=== PATIENT | male | born 1970 | race Caucasian/White ===

== ENCOUNTER → 2019-10-27 12:08 | Outpatient (CLI) | payer OTHER, SELFPAY ==
--- NOTE | 2019-10-27 | DI.RAD.S_ITS ---
PROCEDURE: FL ARTHROGRAM SHOULDER LT INDICATIONS: Left shoulder pain TECHNIQUE: The indications, alternatives, benefits, risks, and complications of the procedure were explained to the patient. Written informed consent was obtained and placed in the chart. The shoulder was examined fluoroscopically and a site for needle placement chosen for entry into the glenohumeral joint from an anterior approach. The skin was prepped and draped in a sterile fashion, and 1% lidocaine infiltrated from skin down to joint capsule. A spinal needle was inserted into the glenohumeral joint, and a small amount of iodinated contrast media injected to confirm intra-articular placement of the needle tip. This was followed by approximately 12 mL dilute solution of a gadolinium containing MR contrast agent. The needle was removed and a dressing was applied. The patient was given postprocedural instructions and sent to the MR suite for MR imaging. FINDINGS: A single fluoroscopic spot image demonstrates intra-articular location of injected iodinated contrast. IMPRESSION: Successful fluoroscopically guided administration of dilute Gadolinium solution into the shoulder joint for MR arthrogram. Dictated by: Marty Wei M.D. on 10/27/2019 at 15:18 Approved by: Marty Wei M.D. on 10/27/2019 at 15:18
--- NOTE | 2019-10-27 | DI.MRI.S_ITS ---
PROCEDURE: MR SHOULDER LT W CON INDICATIONS: Left shoulder pain TECHNIQUE: After the administration of 12 mL of dilute intra-articular Gadolinium contrast, oblique coronal T1 and T2 spin echo with fat saturation, oblique sagittal T1 spin echo with and without fat saturation, oblique sagittal T2 fast spin echo with fat saturation, axial T1 spin echo with fat saturation through the shoulder. COMPARISON: None. FINDINGS: Image quality: Excellent. Rotator cuff: Tendinosis and low-grade articular and bursal surface partial-thickness tear involving distal supraspinatus is seen at its insertion the humeral head extending to the musculotendinous junction. Distal infraspinatus tendinosis is also noted. Distal subscapularis tendon is intact. No rotator cuff muscle atrophy on sagittal images. Bones and bursae: No bone marrow contusions or fractures. Mild to moderate acromioclavicular joint osteoarthritic changes are seen with downward osteophyte formation compressing on musculotendinous junction of supraspinatus.. Capsule and soft tissues: There is suggestion of focal superior anterior labral tear at one to 2:00 position. The glenohumeral ligaments appear intact. The long head of the biceps tendon demonstrates normal location and morphology. The rotator interval appears normal, without fibrosis. The coracohumeral ligament is of normal thickness. No intra-articular bodies. IMPRESSION: 1. Suggestion of focal superior anterior labral tear at one to 2:00 position. 2. Tendinosis and low-grade articular and bursal surface partial-thickness tear involving distal supraspinatus extending to musculotendinous junction. Distal infraspinatus tendinosis. 3. Mild to moderate acromioclavicular joint osteoarthritis. Dictated by: Blade Garcia M.D. on 10/27/2019 at 16:58 Approved by: Blade Garcia M.D. on 10/27/2019 at 17:03
== END ==
PROVIDERS: Referring Provider Physician Assistant; Visit Provider Physician Assistant
DX: M25.512 Pain in left shoulder (principal); M19.012 Primary osteoarthritis, left shoulder; M75.112 Incomplete rotator cuff tear or rupture of left shoulder, not specified as traumatic
CPT/HCPCS: 23350; 73040; 73222; 77002

== ENCOUNTER 2023-02-26 07:10 | Emergency (ER) | payer OTHER, SELFPAY ==
[2023-02-26 07:24] VITALS: BP 150/86; PULSE 90; RESP 18; TEMP 36.8; O2SAT 99; BMI 26.7
--- NOTE | 2023-02-26 07:34 | ED_ITS ---
HPI - Back Pain/Injury General Chief Complaint: Back Pain/Injury Stated Complaint: lower back pain Time Seen by Provider: 02/26/23 07:23 History of Present Illness HPI Narrative: Patient here for acute on chronic low back pain. This flared up this past Friday. No known injury. Patient originally injured his lower back L5-S1 2004 when he was in the . He tried to catch a very heavy piece of machinery. No surgeries for the spine. No IV drug use no diabetes no fever chills. No saddle paresthesia pain radiates to his feet bilaterally. No saddle paresthesia. No bowel or bladder incontinence or retention. Patient ambulating without assist. Not antalgic. Related Data Previous Rx's Medication Instructions Recorded baclofen 20 mg tablet 20 mg PO TID PRN pain (scale score 02/26/23 4-6) #20 tabs famotidine 20 mg tablet 20 mg PO BID #14 tabs 02/26/23 methylprednisolone 4 mg tablets in See Rx Instructions PO .COMPLEX 02/26/23 a dose pack (Medrol (Kentrell)) #21 ea baclofen 20 mg tablet 20 mg PO TID #40 tabs 03/03/23 Allergies Allergy/AdvReac Type Severity Reaction Status Date / Time No Known Drug Allergies Allergy Verified 03/03/23 09:34 Review of Systems Review of Systems Narrative: GENERAL: negative chills, fatigue, malaise, fever, sweats. HEENT: negative sinus pain, ear pain, sore throat RESPIRATORY: negative dyspnea, cough CARDIOVASCULAR: negative chest pain, palpitations GASTROINTESTINAL: negative nausea, vomiting, abdominal pain : negative dysuria, frequency, hematuria MUSCULOSKELETAL: Positive back, muscle or bony pain SKIN: negative rash, skin lesions NEUROLOGIC: negative weakness, numbness ROS Unobtainable: All systems reviewed & are unremarkable except as noted in HPI and below Patient History Social History Smoking Status: Former smoker Smoking Status: Former smoker alcohol intake frequency: 0-2 drinks per day Alcohol type: beer Substance Use Type: does not use Exam Narrative Exam Narrative: GENERAL: in no distress, not toxic not dyspneic HEAD: Normocephalic. CARDIOVASCULAR: Regular rate and rhythm RESPIRATORY: Clear to auscultation. Breath sounds equal bilaterally. No wheezes, rales, or rhonchi. EXTREMITIES: No gross deformities. BACK: No flank tenderness. There is reproducible bilateral low paralumbar/sacral muscle tenderness. Increased pain with side bending left and right and leaning forward and back which is limited range of motion. Increased pain in a seated position with straight leg raise at 90?. No midline tenderness or step-off of the lumbar spine NEURO: AOx4. Stay safe gait strong bilateral patellar reflexes and ankle flexion-extension. No footdrop when walking. Not ataxic. Light touch intact to lower legs. SKIN: Warm and dry PSYCH: Not anxious, is cooperative Initial Vital Signs Initial Vital Signs: Vital Signs Temperature 98.2 F 02/26/23 07:24 Pulse Rate 90 02/26/23 07:24 Respiratory Rate 18 02/26/23 07:24 Blood Pressure 150/86 H 02/26/23 07:24 Pulse Oximetry 99 02/26/23 07:24 Oxygen Delivery Method Room Air 02/26/23 07:24 Course Orders Ordered: Discontinued Medications Ketorolac Tromethamine (Ketorolac 30 Mg/Ml Vial) 30 mg IM NOW ONE Stop: 02/26/23 07:34 Last Admin: 02/26/23 07:51 Dose: 30 mg Documented By: JOSE Prednisone (Prednisone 20 Mg Tablet) 60 mg PO NOW ONE Stop: 02/26/23 07:34 Last Admin: 02/26/23 07:51 Dose: 60 mg Documented By: JOSE Vital Signs Vital signs: Vital Signs - 8 hr 02/26/23 07:24 Temperature 98.2 F Pulse Rate 90 Respiratory Rate 18 Blood Pressure 150/86 H Pulse Oximetry 99 Oxygen Delivery Method Room Air MDM - Back Pain/Injury MDM Narrative Medical decision making narrative: Patient here with spouse for complaints of sudden onset right flank pain at 3:00 a.m. today. Had chills. No nausea vomiting no diaphoresis. It does radiate to his groin area. No urinary urgency frequency or hematuria. However in the last 3 days patient has had dark urine. Has had same amount of urine output. History appendectomy. Has reducible umbilical hernia. Pain is waxing and waning and currently 7/10. It is sharp as well as achy and dull. Patient in no distress at this time. Patient is under oncological services with [facility]. He states he is being treated for lymphoma After history and exam Toradol prednisone, at this time no imaging or blood work indicated. No recent fall or injury. No fever chills no recent illness. MDM CC: Low back pain Complicating co-morbidities: Chronic low back pain Data collected from: Patient Medical records reviewed: No recent visit for this complaint Differential considered: Includes but not limited to sciatica herniated disc, cauda equina muscular strain Exam documented above, pertinent findings include: Tender bilateral paralumbar parasacral muscle tenderness Treatments: Toradol prednisone Re-evaluations: Reviewed physical findings with patient. He does not want any x-ray imaging. He has been taking Tylenol for the discomfort and it does help. He does agree for baclofen and prednisone. No narcotic medication at this time. Return precautions reviewed with him. He desires discharge home Discussion: Appropriate for discharge home. Exam is reassuring. No neuro deficits. No imaging or blood work indicated at this time. No red flags. No immunocompromise. No IV drug use. No fever chills or recent illness. Recent trauma or injury. No imaging indicated. Return precautions reviewed with emelyn ent. He desires discharge home. Diagnosis: Acute on chronic back pain Discharge Plan Departure Patient Disposition: Home Clinical Impression: Chronic low back pain with sciatica Instructions: DI for Low Back Pain, DI for Sciatica Activity Restrictions/Additional Instructions: See family doctor within a week for re-evaluation. Call provided primary care referral phone number to establish family doctor. Call [phone] no driving operating machinery when taking any prescribed back pain medication. Return if worse if any questions or concerns. Continue steroid pack tomorrow. Prescriptions: New baclofen 20 mg tablet 20 mg PO TID PRN (Reason: pain (scale score 4-6)) Qty: 20 0RF famotidine 20 mg tablet 20 mg PO BID Qty: 14 0RF methylprednisolone [Medrol (Kentrell)] 4 mg tablets,dose pack See Rx Instructions .ROUTE .COMPLEX Qty: 21 0RF Rx Instructions: orally per package directions No Action baclofen 20 mg tablet 20 mg PO TID Qty: 40 0RF Stand Alone Forms: Patient Portal/API, Work Release Note
[2023-02-26] MEDS: KETOROLAC 30 MG/ML VIAL IM (07:51)
[2023-02-26] MEDS: predniSONE 20 MG TABLET 60 MG PO (07:51)
== END 2023-02-26 08:10 | disposition home or self-care (01) ==
PROVIDERS: Emergency Provider Emergency Medicine
DX: M54.41 Lumbago with sciatica, right side (principal)
CPT/HCPCS: 96372; 99283; J1885

== ENCOUNTER 2023-03-03 09:18 | Emergency (ER) | payer OTHER, SELFPAY ==
[2023-03-03 09:30] VITALS: BP 139/88; PULSE 97; RESP 18; TEMP 36.6; O2SAT 98; BMI 26.7
[2023-03-03] MEDS: KETOROLAC 30 MG/ML VIAL IM (11:10)
--- NOTE | 2023-03-03 11:24 | ED_ITS ---
HPI - Back Pain/Injury <Leann Hook PA-C - Last Filed: 03/03/23 11:51> General Chief Complaint: Back Pain/Injury Stated Complaint: shooting pain, sciatica Time Seen by Provider: 03/03/23 09:41 Source: patient History of Present Illness HPI Narrative: 52-year-old male here in the ED for acute on chronic low back pain with radiation to both legs. Patient states he has chronic back pain from an injury L5-S1 in 2004 in the . He had a herniated disc at that time. No history of surgery or other procedures on the back. He currently has a job which requires very heavy lifting and this often aggravates his pain. He has an jessica ointment with his PCP on March 19. He was here in this ED 1 week ago for a flare up and received prednisone and Toradol as well as a Medrol Dosepak and baclofen. States the baclofen has been very helpful but he is almost out. States he went back to work this morning and lifted about 200 lb and it immediately aggravated his back again. The pain radiates to both legs but he denies numbness and tingling or weakness. Denies saddle anesthesia, Retention, or incontinence. He is here because he needs another work note so he can avoid heavy lifting until he is able to see his PCP. He denies history of IV drug use, gastric ulcers, heart problems. he is able to ambulate without assistance although it is painful. Related Data Previous Rx's Medication Instructions Recorded baclofen 20 mg tablet 20 mg PO TID PRN pain (scale score 02/26/23 4-6) #20 tabs famotidine 20 mg tablet 20 mg PO BID #14 tabs 02/26/23 methylprednisolone 4 mg tablets in See Rx Instructions PO .COMPLEX 02/26/23 a dose pack (Medrol (Kentrell)) #21 ea baclofen 20 mg tablet 20 mg PO TID #40 tabs 03/03/23 Allergies Allergy/AdvReac Type Severity Reaction Status Date / Time No Known Drug Allergies Allergy Verified 03/03/23 09:34 Review of Systems <Leann Hook PA-C - Last Filed: 03/03/23 11:51> Review of Systems ROS Unobtainable: All systems reviewed & are unremarkable except as noted in HPI and below Patient History <Leann Hook PA-C - Last Filed: 03/03/23 11:51> Social History Smoking Status: Former smoker Smoking Status: Former smoker alcohol intake frequency: 0-2 drinks per day Alcohol type: beer Substance Use Type: does not use Exam <YASH Mccray Last Filed: 03/03/23 11:51> Narrative Exam Narrative: GENERAL: [ 52] year old patient appears stated age. Well-developed patient, in mild distress. HEAD: Atraumatic. Normocephalic. EYES: Pupils equal round and reactive. Extraocular motions intact. No scleral icterus. No injection or drainage. ENT: Nose without bleeding, purulent drainage. Airway patent. NECK: Trachea midline. Non tender RESPIRATORY: respiratory rate and effort normal EXTREMITIES: No edema or joint tenderness. BACK: bilateral lumbar paraspinal tenderness. Increased pain with side bending and leaning forward and back with limited range of motion increased pain and seated position and straight leg raise at 90? no midline tenderness or step-off of the lumbar spine. NEURO: AOx3. Ambulating without assistance although slowly and with discomfort. Bilateral lower extremity reflexes and sensation intact. No footdrop noted. SKIN: No rash or erythema of visible areas Initial Vital Signs Initial Vital Signs: Vital Signs Temperature 97.9 F 03/03/23 09:30 Pulse Rate 97 H 03/03/23 09:30 Respiratory Rate 18 03/03/23 09:30 Blood Pressure 139/88 03/03/23 09:30 Pulse Oximetry 98 03/03/23 09:30 Oxygen Delivery Method Room Air 03/03/23 09:30 <Rolando Gonzalez DO - Last Filed: 03/03/23 13:03> Initial Vital Signs Initial Vital Signs: Vital Signs Temperature 97.9 F 03/03/23 09:30 Pulse Rate 97 H 03/03/23 09:30 Respiratory Rate 18 03/03/23 09:30 Blood Pressure 139/88 03/03/23 09:30 Pulse Oximetry 98 03/03/23 09:30 Oxygen Delivery Method Room Air 03/03/23 09:30 Course <YASH Mccray Last Filed: 03/03/23 11:51> Orders Ordered: Discontinued Medications Ketorolac Tromethamine (Ketorolac 30 Mg/Ml Vial) 30 mg IM NOW ONE Stop: 03/03/23 09:42 Last Admin: 03/03/23 11:10 Dose: 30 mg Documented By: CARMELO Vital Signs Vital signs: Vital Signs - 8 hr 03/03/23 09:30 Temperature 97.9 F Pulse Rate 97 H Respiratory Rate 18 Blood Pressure 139/88 Pulse Oximetry 98 Oxygen Delivery Method Room Air <Rolando Gonzalez DO - Last Filed: 03/03/23 13:03> Orders Ordered: Discontinued Medications Ketorolac Tromethamine (Ketorolac 30 Mg/Ml Vial) 30 mg IM NOW ONE Stop: 03/03/23 09:42 Last Admin: 03/03/23 11:10 Dose: 30 mg Documented By: CARMELO Vital Signs Vital signs: Vital Signs - 8 hr 03/03/23 09:30 Temperature 97.9 F Pulse Rate 97 H Respiratory Rate 18 Blood Pressure 139/88 Pulse Oximetry 98 Oxygen Delivery Method Room Air MDM - Back Pain/Injury <Leann Hook PA-C - Last Filed: 03/03/23 11:51> MDM Narrative Medical decision making narrative: This patient is here today for acute on chronic low back pain which initially began in 2004 when he sustained a herniated L5-S1 while in the attempting to catch a very very heavy item. No history of prior surgeries or back procedures. He currently that requires very heavy lifting and he has recently aggravated his back while working. He was here on 02/26 for the same complaint. He has been taking Medrol Dosepak and baclofen as prescribed and states it was helping but then he went back to work today and lifted 200 lb and immediately aggravated his back again. States there are no new symptoms, this is unchanged from his previous symptoms. He has pain radiating to both legs but there are no neurologic symptoms or deficits. He has no footdrop, sensation deficits, saddle anesthesia, incontinence or retention, or other red flag symptoms. We discussed possibly obtaining an x-ray today since this is his 2nd visit in a week but patient declined and states he would like to wait for his PCP visit. I think this is reasonable as he has no red flag or new concerning symptoms today. Will provide him with additional Rx baclofen and a work note. Multiple etiologies for patient's symptoms considered including, but not limited to: Acute on chronic low back pain, sciatica, herniated disc, subluxation Prior Charts reviewed: recent ED visit Labs reviewed and interpreted by myself: none Imaging reviewed: none Consultations: none Patient's symptoms improved over duration of stay with above-stated therapies. Findings and discharge diagnosis discussed with patient/family followed by verbalization of understanding Return precautions discussed with patient/family whom verbalize understanding of diagnosis and plan Discharge Plan Departure Patient Disposition: Home Clinical Impression: Chronic low back pain with sciatica Instructions: DI for Back Pain With Sciatica, DI for Back Strain or Sprain Activity Restrictions/Additional Instructions: Thank you for being seen today. You were evaluated for low back pain which is a chronic issue but you are having an acute flare-up. There were no red flags today or symptoms that required imaging or additional evaluation. You are being given a work note. Please do not lift anything until you are able to be evaluated by your PCP. I am giving you another prescription for baclofen. you received Toradol today in the ED so please do not take any ibuprofen or Advil today. You may take 600 mg ibuprofen every 6-8 hours starting tomorrow. Please use ice or heat as needed. We discussed red flag symptoms that would warrant a return to the ED immediately. Prescriptions: New baclofen 20 mg tablet 20 mg PO TID Qty: 40 0RF No Action baclofen 20 mg tablet 20 mg PO TID PRN (Reason: pain (scale score 4-6)) Qty: 20 0RF famotidine 20 mg tablet 20 mg PO BID Qty: 14 0RF methylprednisolone [Medrol (Kentrell)] 4 mg tablets,dose pack See Rx Instructions .ROUTE .COMPLEX Qty: 21 0RF Rx Instructions: orally per package directions Stand Alone Forms: Patient Portal/API, Work Release Note <Rolando Gonzalez, DO - Last Filed: 03/03/23 13:03> Cosign ED Attending Cosamparoature Attestation: Dr Gonzalez Co-Sign Statement: I was available for consultation during this patient's emergency department visit. This chart is signed by myself for administrative purposes only. I did not have direct contact with this patient during this visit. They were seen independently by the APC.
[2023-03-03 11:30] VITALS: BP 148/78; PULSE 80; RESP 16; O2SAT 99
== END 2023-03-03 11:55 | disposition home or self-care (01) ==
PROVIDERS: Emergency Provider Physician Assistant
DX: M54.42 Lumbago with sciatica, left side (principal); M54.41 Lumbago with sciatica, right side
CPT/HCPCS: 96372; 99283; J1885

== ENCOUNTER → 2024-12-03 08:47 | Outpatient (CLI) | payer OTHER, SELFPAY ==
[2024-12-03 09:43] LABS: Appearance Urine UA CLEAR; Bilirubin Urine UA NEGATIVE (NEGATIVE); Color Urine UA YELLOW; Glucose Urine UA 3+ g/dL (Negative); Ketones Urine UA NEGATIVE (NEGATIVE); Leukocyte Esterase Urine UA NEGATIVE (NEGATIVE); Nitrite Urine UA NEGATIVE (Negative); Occult Blood Urine UA NEGATIVE (Negative); Protein Urine UA NEGATIVE (Negative); Urobilinogen Urine UA 0.2 E.U./dL (0.2)
[2024-12-03 09:46] LABS: Urine Volume 10mL (spun)
[2024-12-03 09:48] LABS: Bacteria Urine None Seen; Culture Indicated Urine Cult Not Indicated; RBC Urine None Seen (0-5/HPF); Squamous Epithelial Cell Urine None Seen (0-5/HPF); WBC Urine None Seen (0-5/HPF)
[2024-12-03 09:51] LABS: Alanine Aminotransferase 23 IU/L (<50); Albumin 4.7 g/dL (3.5-5.0); Alkaline Phosphatase 75 U/L (38-126); Aspartate Aminotransferase 24 IU/L (17-59); BUN Creatinine Ratio 17.4 (6-22); Bilirubin Total 1.3 mg/dL (0.2-1.3); Blood Urea Nitrogen 16 mg/dL (9-20); Calcium 9.6 mg/dL (8.4-10.2); Carbon Dioxide 31 mmol/L (22-32); Chloride 99 mmol/L (98-107); Estimated Glomerular Filt Rate > 60 mL/min (>60); Globulin 2.4 g/dL (1.7-4.1); Glucose 125 mg/dL (70-99); HEMOLYSIS < 15 (0-50); Potassium 3.9 mmol/L (3.4-5.1); Sodium 140 mmol/L (137-145); Total Protein 7.1 g/dL (6.3-8.2)
== END ==
PROVIDERS: Referring Provider Chiropractor; Visit Provider Chiropractor
DX: E11.9 Type 2 diabetes mellitus without complications (principal)
CPT/HCPCS: 80053; 81001